=== PATIENT | male | born 1945 | race Caucasian/White ===

== ENCOUNTER 2023-12-08 16:50 | Emergency (ER) | payer MEDICARE, SELFPAY ==
[2023-12-08 17:02] VITALS: BP 159/100
[2023-12-08 18:13] LABS: Urine Albumin Negative (Neg - Trace); Urine Bilirubin Negative (Negative); Urine Character Clear (Clear); Urine Color Yellow; Urine Glucose Negative (Negative); Urine Ketone Negative (Negative); Urine Leukocyte Negative (Negative); Urine Nitrite Negative (Negative); Urine Occult Blood Negative (Negative); Urine Urobilinogen Negative (Neg - 1+); Urine pH 6.5 (5.0-9.0)
--- NOTE | 2023-12-08 20:14 | ED.GENMED ---
History of Present Illness
General
Chief Complaint: Cold/Flu/URI Symptoms
Source: patient
Exam Limitations: none
Time Seen by Provider: 12/08/23 19:33
Travel History
Have you had any contact with someone who has COVID-19?: No
Do you have any symptoms of coronavirus? Fever > 100 degrees, chills, cough, shortness of breath, sore throat, loss of taste or smell, muscle aches, or headache?: No
History of Present Illness
History of Present Illness:
This is a 78 year old male that comes in with multiple complaints. States that he was away in the [facility]. patient came home and eat out on Thursday night. States that Thursday into Thursday he must have gotten up 20 times to use the BT. States that
he lost 5 pounds over night. State that Thursday he awoke with body aches and a cough. States that his had had a cold and he felt he got her cold. State that he got up to the BR and went around the bed and the next thing he new he was on the
floor. Stats that he layed there for about 15 min. Feels that he banged the right knee at this time. States that he then eat breakfast and when he was in the kitchen things started to get levi. States that he fell again hitting his head on the
cabinet. States that he had passed out according to his . States that Thursday night he tested postive for COVID. States that the PCP called back today and he was told to come to the ER for evaluation. States that he did have chills yesterday and
his head is just sore. Denies any fever, chest pain, SOB, abd pain, nausea, vomiting, diarrhea, headache, dizziness, urinary burning.
Past History
Past History
ED Past Medical History: HTN and Hypercholesterolemia
ED Past Surgical History: Other (Hernia, ); Negative Cardiac
Social History
Tobacco: Non-smoker
Alcohol: Occasional
Drug: None
Personal: Other (Common law marriage)
Living: with family
Employment: Employed
Family History
Family History: Hypertension
Review of Systems
Review of Systems
All Other Systems: ROS reviewed and negative except as documented in HPI and ROS
Constitutional: Reports chills; Denies fever
EENT: Reports no symptoms
Respiratory: Reports no symptoms; Denies cough or trouble breathing
Cardiac: Reports no symptoms; Denies chest pain
ABD/GI: Reports no symptoms; Denies abdominal pain, nausea, vomiting or diarrhea
: Reports frequency; Denies dysuria or urgency
Musculoskeletal: Reports joint pain (Right knee pain)
Skin: Reports other (abrasion anterior scalp)
Neurological: Reports no symptoms; Denies dizzy or headache
Psychiatric: Reports no symptoms
Phy Exam
General Physical Exam
General Presentation: well appearing and no apparent distress
General age: appears stated age
General Skin: warm and dry
General Habitus: elderly
General Mental: alert
General Hydration: appears well hydrated
ENT Exam
ENT Exam: TM's normal, pharynx normal and neck supple
Eye Exam
Eye Exam: EOMI
Cardiovascular Exam
Cardiovascular Exam: regular rate/rhythm, no edema, no murmur and normal peripheral pulses
Pulmonary Exam
Pulmonary Exam: lungs clear, no respiratory distress, no rales, chest non tender, no crackles, no rhonchi, no wheezing and no cough
Gastrointestinal Exam
Gastrointestinal Exam: normal bowel sounds, non tender, soft, no organomegaly, no pulsatile mass and non distended
Musculoskeletal Exam
Musculoskeletal Exam: full ROM, no edema and other (Negative for any tenderness of the right knee with palpation. Patient has been walking without difficulty, negative for any cervical tenderness with palpation)
Skin Exam
Skin Exam: normal color, warm/dry, no rash and no petechia
Psychiatric Exam
Psychiatric Exam: normal mood/affect
Course
Orders/Labs/Results
Orders:
Orders
12/08/23 17:11
CT Head W/o Iv Contrast Urgent
Comment:
Reason For Exam: fall
12/08/23 17:13
Electrocardiogram (*1) Urgent
Reason for Study: Vertigo / Dizzy
EKG- Treatment ONCE
12/08/23 17:25
Urine Reflex Culture from UA [Urinalysis Reflex To Culture] Urgent
Date Specimen was Collected: 12/08/23
Time Specimen was Collected: 17:12
12/08/23 20:13
CR Knee- Right 4 Or More View* Urgent
Comment:
Reason For Exam: Fall, knee pain
12/08/23 20:32
Complete Blood Count/With Diff Urgent
Comprehensive Metabolic Panel Urgent
Troponin I Urgent
Abnormal Lab Results
12/08/23
20:32
RBC 4.49 L 10^6/uL
(4.70-6.10)
MCH 31.8 H pg
(27.0-31.0)
Absolute Monos (auto) 0.9 H 10^3/uL
(0.1-0.6)
Monocytes % 13.5 H %
(1.7-9.3)
12/08/23 20:32
12/08/23 20:32
Urine negative for infection. labs unremarkable. Troponin <0.012
Vital Signs
Initial and Last Documented VS:
Initial Vital Signs
Temp Pulse Resp BP Pulse Ox
99.4 F 90 16 159/100 97
12/08/23 17:02 12/08/23 17:02 12/08/23 17:02 12/08/23 17:02 12/08/23 17:02
Last Documented Vital Signs
Temp Pulse Resp BP Pulse Ox
99.4 F 88 16 149/85 96
12/08/23 17:02 12/08/23 20:44 12/08/23 20:44 12/08/23 20:44 12/08/23 21:00
MDM/Problems Addressed
Differential Diagnosis Includes:
COVID, SYncope
MDM/Problems Addressed:
This is a 78 year old male that comes in with multiple complaints. States that he has COVID which he tested for at home on Thursday. States that he fall twice and believed that he has passed out.
Will check CT head, Labs and x-ray knee
Back into see patient. Explained that his blood work is normal, CT of the head is normal and her urine is negative for any infection. This was most likely a combination of some dehyration due to all the urine output, COVID and hypotension.
Encouraged patient to increase his water intake to 8-8oz glasses daily. Follow up with the family doctor. Return with any concerns.
Chronic conditions affecting care:
NA
Acute Exacerbation and/or Progression of Chronic Illness:
NA
*Radiology
Radiology exam reviewed: radiology read reviewed (CT head- NO acute intracranial abnormality right knee- No acute fracture or dislocation. )
*Pulse Oximetry
Patient hypoxic: no
*EKG
Interpreted by ED Provider?: Yes
Heart Rate: 82
Rate: normal
Coy: left axis deviation
Interval: normal interval
QRS Pattern: right bundle branch block
Ischemia: no ischemia
*Hose Turner Interpretation
Rate: Hose Turner- N/A
*Critical Care Note
Total Time (30-74mins, 75-104mins- exclusive of procedures): Not Applicable
ED Attending Note
-
Portions of this chart may have been created with voice recognition software.� Occasional wrong word or��sound alike� substitutions may have occurred due to the inherent limitations of voice recognition software.
Discharge Plan
Departure
Patient Disposition: Home (Routine Discharge)
Date of Disposition: 12/08/23
Time of Disposition: 22:03
Patient with high blood pressure during this ER visit?: Yes
Condition: Good
Covid-19: Not Applicable
Discharge Problem:
COVID, Minor head injury, Knee pain, right
Instructions: Skin Abrasions (DC), Knee Pain (DC), COVID-19 (DC), BLOOD PRESSURE
Prescriptions:
No Action
atorvastatin 20 MG tablet
1 tab PO MOWEFR
prasterone (dhea) [DHEA] 25 MG tablet
25 mg PO DAILY
aspirin 81 MG tablet,delayed release (DR/EC)
81 mg PO MOWEFR
clobetasol [Olux] 100 GM foam
100 gm TP DAILY
chromium picolinate 200 MCG tablet
200 mcg PO DAILY
finasteride [Propecia] 1 MG tablet
1 mg PO DAILY
Metoprolol
0.5 tab PO DAILY
Patient Comments:
pt unsure of dose, pt states he does not remember to take regularly. states he sometimes takes a whole one because he missed the day before
Gerd Medication
PO BID
Patient Comments:
pt. takes two medications for GERD, but does not know what they are.
Vitamin B-12
1 tab PO DAILY
pmmkoaznjx-zubhhlszdzmag-yysn 1 TAB tablet
1 tab PO .Q4-6HPRN PRN (Reason: Headache) Qty: 20 0RF
meclizine 25 MG tablet
25 mg PO Q8HPRN PRN (Reason: nausea or vertigo) Qty: 15 0RF
hydrocodone-acetaminophen 1 TABLET tablet
1 tab PO Q4HPRN PRN (Reason: pain) Qty: 25 0RF
Referrals:
Kwasi Webster, [Family Provider] - Call in 1-3 days for appt
Activity Restrictions/Additional Instructions:
As discussed, your blood work is normal along with the CT of the head, your right knee x-ray and your urine is negative for infection. This may have been a combination of some dehydration on Thursday due to all the urine output, COVID and your blood
pressure dropping. Please increase your water intake to 8-8oz glasses daily. Tylenol or Ibuprofen for any fever or body aches. Follow up with the family doctor for recheck. IF YOU HAVE ANY OTHER CONCERNS PLEASE RETURN TO THE EMERGENCY ROOM .
Interventions
Interventions:
*Risk Screen - Suicide Last Done: 12/08/23 17:02
*General Assessment Last Done: 12/08/23 17:02
*Neglect/Abuse Screening Last Done: 12/08/23 17:02
ED- Fall Risk Assessment Last Done: 12/08/23 20:43
*ED COVID-19 Vaccine History Last Done: 12/08/23 17:02
ED- Pulmonary Assessment Last Done: 12/08/23 20:43
[2023-12-08 20:20] VITALS: BP 149/85
[2023-12-08 20:44] VITALS: BP 149/85
[2023-12-08 20:46] LABS: % Basophils 0.7 % (0-2); % Eosinophils 1.9 % (0-6); % Immature Granulocytes 0.4 % (0-0.5); % Lymphocytes 28.1 % (20.5-51.1); % Monocytes 13.5 % (1.7-9.3); % Neutrophils 55.4 % (42.2-75.2); Absolute Basophils 0.1 10^3/uL (0-0.2); Absolute Eosinophils 0.1 10^3/uL (0-0.7); Absolute Lymphocytes 1.9 10^3/uL (1.2-3.4); Absolute Monocytes 0.9 10^3/uL (0.1-0.6); Absolute Neutrophils 3.7 10^3/uL (1.4-6.5); Hemoglobin 14.3 g/dL (13.0-18.0); Mean Corp Hgb Conc. 35.8 g/dL (33.0-37.0); Mean Corpuscular Hgb 31.8 pg (27.0-31.0); Mean Corpuscular Volume 89.1 fL (80.0-94.0); Mean Platelet Volume 9.6 fL (7.4-10.4); Nucleated Red Blood Cells % 0 % (-); Platelet Count 207 10^3/uL (130-400); Red Blood Cell Count 4.49 10^6/uL (4.70-6.10); Red Cell Dist. Width 12.8 % (11.5-14.5); White Blood Cell Count 6.8 10^3/uL (4.8-10.8)
[2023-12-08 21:15] LABS: ALT (SGPT) 27 U/L (0-50); AST (SGOT) 39 U/L (17-59); Albumin 4.3 g/dl (3.5-5.0); Alkaline Phosphatase 50 U/L (38-126); Blood Urea Nitrogen 18 mg/dl (9-20); Calcium 9.3 mg/dl (8.4-10.2); Carbon Dioxide 28 mmol/L (22-30); Chloride 98 mmol/L (98-107); Glucose 97 mg/dl (70-99); Potassium 4.4 mmol/L (3.5-5.1); Sodium 137 mmol/L (135-145); Total Bilirubin 0.7 mg/dl (0.2-1.3); Total Protein 7.2 g/dl (6.3-8.2); eGFR > 60.00
[2023-12-08 21:16] LABS: Troponin I < 0.012 ng/ml
[2023-12-08 22:11] VITALS: BP 147/94
[2023-12-08 22:48] VITALS: BP 147/85
== END 2023-12-08 22:51 | disposition home or self-care (01) ==
LOC: EMR 16:50
PROVIDERS: Clinical Nurse Specialist Family Health; Physician Assistant; EMERGENCY PHYSICIAN Emergency Medicine; FAMILY PHYSICIAN Family Medicine
DX: U07.1 COVID-19 (principal); M25.561 Pain in right knee; S09.90XA Unspecified injury of head, initial encounter; W19.XXXA Unspecified fall, initial encounter; I10 Essential (primary) hypertension; E78.00 Pure hypercholesterolemia, unspecified
CPT/HCPCS: 99285; 70450; 73564; 80053; 81003; 84484; 85025; 93005

== ENCOUNTER 2024-01-10 19:01 | Emergency (ER) | payer MEDICARE, SELFPAY ==
[2024-01-10 19:04] VITALS: BP 171/92
--- NOTE | 2024-01-10 19:35 | ED.SKININJ ---
HPI-Injury
General
Chief Complaint: Bite
Source: patient
Exam Limitations: none
Time Seen by Provider: 01/10/24 19:07
Nursing documentation reviewed up to this point in time: agreed with
Travel History
Have you had any contact with someone who has COVID-19?: No
Do you have any symptoms of coronavirus? Fever > 100 degrees, chills, cough, shortness of breath, sore throat, loss of taste or smell, muscle aches, or headache?: No
History of Present Illness-Injury
Is this injury a work related problem?: No
Is pt an associate of [facility]?: No
Initial Injury comments:
Patient states he was bit by neighborhood dog while walking. Seasonal Retail Merchandiser reported to him that dog is UTD with rabies vaccine. Patient sustained bite to right posterior elbow. INjury occurred just [employer]
Past History
Past History
ED Past Medical History: HTN and Hypercholesterolemia
ED Past Surgical History: Other (Hernia, ); Negative Cardiac
Social History
Tobacco: Non-smoker
Alcohol: Occasional
Drug: None
Personal: Other (Common law marriage)
Living: with family
Employment: Employed
Family History
Family History: Hypertension
Review of Systems
Review of Systems
Allergies reviewed?: Yes
All Other Systems: ROS reviewed and negative except as documented in HPI and ROS
Constitutional: Reports no symptoms
Musculoskeletal: Reports no symptoms
Skin: Reports other (dog bite to right posterior elbow)
Neurological: Reports no symptoms
Psychiatric: Reports no symptoms
Skin Exam
Bite
Right Posterior Elbow:
Type: animal
Skin has: puncture wounds
Surrounding area around bite has: no evidence of erythema
Distal skin color and temperature: normal-warm & good color
Normal distal neurovascular exam: Yes
Phy Exam
General Physical Exam
General Presentation: well appearing and no apparent distress
General age: appears stated age
General Skin: warm and dry
General Habitus: normal
General Mental: alert
Musculoskeletal Exam
Musculoskeletal Exam: full ROM and neuro vasc intact
Skin Exam
Skin Exam: normal color, warm/dry, no rash and other (dog bite to right posterior elbow)
Psychiatric Exam
Psychiatric Exam: normal mood/affect
Course
Orders/Labs/Results
Orders:
Orders
01/10/24 19:26
Amoxicillin 875 mg/Clav 125 mg [Augmentin 875 mg/125 mg] 1 tablet PO NOW STA
Vital Signs
Initial and Last Documented VS:
Initial Vital Signs
Temp Pulse Resp BP Pulse Ox
97.8 F 100 17 171/92 99
01/10/24 19:04 01/10/24 19:04 01/10/24 19:04 01/10/24 19:04 01/10/24 19:04
Last Documented Vital Signs
Temp Pulse Resp BP Pulse Ox
97.8 F 100 17 171/92 99
01/10/24 19:04 01/10/24 19:04 01/10/24 19:04 01/10/24 19:04 01/10/24 19:04
*Critical Care Note
Total Time (30-74mins, 75-104mins- exclusive of procedures): Not Applicable
Update Note
Update Note:
Bit by neighborhood dog. Seasonal Retail Merchandiser reported to him that dog is [facility] rabies vaccine. Patient will verify with fashion buyer
ED Attending Note
-
Portions of this chart may have been created with voice recognition software.� Occasional wrong word or��sound alike� substitutions may have occurred due to the inherent limitations of voice recognition software.
Discharge Plan
Departure
Patient Disposition: Home (Routine Discharge)
Date of Disposition: 01/10/24
Time of Disposition: 19:27
Patient with high blood pressure during this ER visit?: No
Condition: Good
Covid-19: Not Applicable
Discharge Problem:
Dog bite of arm
Instructions: Animal Bites (DC), Wound Care (DC)
Prescriptions:
New
amoxicillin-pot clavulanate 875-125 mg tablet
1 tab PO BID Qty: 14 0RF
No Action
atorvastatin 20 MG tablet
1 tab PO MOWEFR
prasterone (dhea) [DHEA] 25 MG tablet
25 mg PO DAILY
aspirin 81 MG tablet,delayed release (DR/EC)
81 mg PO MOWEFR
clobetasol [Olux] 100 GM foam
100 gm TP DAILY
chromium picolinate 200 MCG tablet
200 mcg PO DAILY
finasteride [Propecia] 1 MG tablet
1 mg PO DAILY
Metoprolol
0.5 tab PO DAILY
Patient Comments:
pt unsure of dose, pt states he does not remember to take regularly. states he sometimes takes a whole one because he missed the day before
Gerd Medication
PO BID
Patient Comments:
pt. takes two medications for GERD, but does not know what they are.
Vitamin B-12
1 tab PO DAILY
ovardjokec-tsrzodguqsonw-fqls 1 TAB tablet
1 tab PO .Q4-6HPRN PRN (Reason: Headache) Qty: 20 0RF
meclizine 25 MG tablet
25 mg PO Q8HPRN PRN (Reason: nausea or vertigo) Qty: 15 0RF
hydrocodone-acetaminophen 1 TABLET tablet
1 tab PO Q4HPRN PRN (Reason: pain) Qty: 25 0RF
Activity Restrictions/Additional Instructions:
Follow up with your family doctor.
Interventions
Interventions:
*Risk Screen - Suicide Last Done: 01/10/24 19:08
*General Assessment Last Done: 01/10/24 19:08
*Neglect/Abuse Screening Last Done: 01/10/24 19:08
ED- Fall Risk Assessment Last Done: 01/10/24 19:08
*ED COVID-19 Vaccine History Last Done: 01/10/24 19:05
ED-Skin Assessment Last Done: 01/10/24 19:08
[2024-01-10] MEDS: AUGMENTIN 875 MG/125 MG 1 TABLET PO (19:42)
== END 2024-01-10 20:38 | disposition home or self-care (01) ==
LOC: EMR 19:01
PROVIDERS: EMERGENCY PHYSICIAN Emergency Medicine; FAMILY PHYSICIAN Family Medicine
DX: S51.031A Puncture wound without foreign body of right elbow, initial encounter (principal); E78.00 Pure hypercholesterolemia, unspecified; W54.0XXA Bitten by dog, initial encounter; Y93.01 Activity, walking, marching and hiking; Z82.49 Family history of ischemic heart disease and other diseases of the circulatory system; I10 Essential (primary) hypertension
CPT/HCPCS: 99282

== ENCOUNTER → 2024-01-12 08:01 | Outpatient (REF) | payer MEDICARE, SELFPAY | LOC: HWEVLT 08:01 | PROVIDERS: ATTENDING PHYSICIAN Radiology Diagnostic Radiology | DX: I83.891 Varicose veins of right lower extremity with other complications (principal) | CPT/HCPCS: 36478; C1769 ==

== ENCOUNTER → 2024-01-26 09:36 | Outpatient (REF) | payer MEDICARE, SELFPAY | LOC: HWEVLT 09:36 | PROVIDERS: ATTENDING PHYSICIAN Radiology Vascular & Interventional Radiology | DX: I83.892 Varicose veins of left lower extremity with other complications (principal) | CPT/HCPCS: 36478; 93971 ==

== ENCOUNTER → 2024-02-04 11:29 | Outpatient (REF) | payer MEDICARE, SELFPAY | LOC: HWEVLT 11:29 | PROVIDERS: ATTENDING PHYSICIAN Radiology Diagnostic Radiology | DX: I83.893 Varicose veins of bilateral lower extremities with other complications (principal) | CPT/HCPCS: 93970 ==